=== PATIENT | male | born 1980 | race African-American/Black ===

== ENCOUNTER 2020-11-29 23:14 | Emergency (ER) | payer SELFPAY ==
[~2020-11-29] VITALS: Ht 195.6 cm; Wt 95.3 kg
[2020-11-30 01:10] LABS: Hemoglobin 15.3 g/dL (13.5-17.5); Mean Corpuscular Hgb Conc. 33.9 g/dL (32.0-36.0); Mean Corpuscular Volume 97.3 fL (80.0-100.0); Red Blood Cells 4.62 10^6/uL (4.5-5.90); White Blood Cell 21.1 10^3/uL (4.4-10.8)
[2020-11-30 01:28] LABS: Basophils % (manual) 0 (0.0-2.0); Blast Cells 0; Metamyelocytes % 0; Myelocytes % 0; Promyelocytes % 0
[2020-11-30 01:29] LABS: Albumin 3.9 g/dL (3.4-5.0); Anion Gap 10 (5-15); Blood Urea Nitrogen 11 mg/dL (7-18); Calcium 9.6 mg/dL (8.5-10.1); Carbon Dioxide 22 mmol/L (21-32); Chloride 107 mmol/L (98-107); Glucose 181 mg/dL (74-106); Potassium 3.1 mmol/L (3.5-5.1); Sodium 139 mmol/L (136-145)
[2020-11-30 01:39] LABS: Alanine Aminotransferase 36 U/L (16-61); Alkaline Phosphatase 61 U/L (45-117); Aspartate Aminotransferase 31 U/L (15-37); BUN/Creatinine Ratio 8.6; Bilirubin, Total 0.4 mg/dL (0.2-1.0); GFR African American 80 mL/min; GFR Non-African American 66 mL/min; Total Protein 7.4 g/dL (6.4-8.2)
[2020-11-30 02:04] LABS: Band Neutrophils % (manual) 3; Eosinophils % (manual) 2 (0-7); Lymphocytes % (manual) 64 (10.0-50.0); Monocytes % (manual) 2 (0-12); Reactive Lymphocytes 1
== END 2020-11-30 00:57 | disposition left against medical advice (07) ==
LOC: ER 23:14
DX: R07.89 Other chest pain (principal); Z53.21 Procedure and treatment not carried out due to patient leaving prior to being seen by health care provider
CPT/HCPCS: 36415; 71045; 80053; 83880; 84484; 85007; 85027; 93005